=== PATIENT | male | born 1960 | race Caucasian/White ===

== ENCOUNTER 2019-05-01 | Day surgery (SDC) | payer MEDICARE, OTHER ==
[~2019-05-01] MED LIST: AMLODIPINE BESY10 MG PO; CHOLESTYRAMINE4 G1 PO; HYDROCHLOROT12.5 M1 PO; HYZAAR1 TAB PO; JARDIANCE25 MG PO; METFORMIN HCL1000 MG PO; TAMSULOSIN HCL0.4 MG PO; TRULICITY0.75 MG/0. IJ
[2019-08-02] MEDS ORDERED: ASPIRIN 81 LOW81 MG PO (10:09)
[2019-08-02] MEDS ORDERED: VITAMIN C1000 MG PO (10:10)
[2019-08-02] MEDS ORDERED: TURMERI1 PO (10:10)
[2019-08-02] MEDS ORDERED: CALCIUM500 M3 PO (10:10)
== END 2019-05-01 10:10 | disposition home or self-care (01) ==
DX: M54.5 Low back pain (principal)

== ENCOUNTER 2019-05-15 | Day surgery (SDC) | payer MEDICARE, OTHER ==
[2019-08-02] MEDS ORDERED: ASPIRIN 81 LOW81 MG PO (10:09)
[2019-08-02] MEDS ORDERED: TURMERI1 PO (10:10)
[2019-08-02] MEDS ORDERED: VITAMIN C1000 MG PO (10:10)
[2019-08-02] MEDS ORDERED: CALCIUM500 M3 PO (10:10)
== END 2019-05-15 10:15 | disposition home or self-care (01) ==
DX: M54.5 Low back pain (principal)

== ENCOUNTER 2019-08-07 | Day surgery (SDC) | payer MEDICARE, OTHER ==
[~2019-08-07] MED LIST changes: +ASPIRIN 81 LOW81 MG PO; +CALCIUM500 M3 PO; +TURMERI1 PO; +VITAMIN C1000 MG PO
== END 2019-08-07 09:32 | disposition home or self-care (01) ==
DX: M54.5 Low back pain (principal); M12.9 Arthropathy, unspecified; M46.1 Sacroiliitis, not elsewhere classified; Z11.59 Encounter for screening for other viral diseases

== ENCOUNTER 2019-08-21 06:59 | Day surgery (SDC) | payer MEDICARE, OTHER ==
[2019-08-21 09:33] VITALS: BP 145/77
== END 2019-08-21 09:45 | disposition home or self-care (01) ==
LOC: ORM 06:59
PROVIDERS: ATTEND Anesthesiology Pain Medicine
DX: M54.5 Low back pain (principal); M12.9 Arthropathy, unspecified; Z01.84 Encounter for antibody response examination